=== PATIENT | female | born 1945 | race Caucasian/White ===

== ENCOUNTER 2024-05-24 11:35 | Inpatient (IN) | payer OTHER ==
[2024-05-24] VITALS (7 sets, daily range): BP systolic 140–165; PULSE 86–93; RESP 15–20; TEMP 97.9–98.5; O2SAT 95–98
[~2024-05-24] VITALS: Ht 149.9 cm; Wt 64.0 kg
[2024-05-24] MEDS ORDERED: iohexoL 350 mgI/mL, 100 ML INFUS..BTL IV ONE (11:56)
[2024-05-24 12:03] LABS: BASOPHILS # (AUTO) 0.1 K/uL (0.0-0.2); EOSINOPHILS # (AUTO) 1.5 K/uL (0.0-0.4); EOSINOPHILS % (AUTO) 12.8 % (0.0-4.0); HEMATOCRIT 32.5 % (36-48); HEMOGLOBIN 10.7 g/dL (12.0-16.0); LYMPHOCYTES # (AUTO) 1.9 K/uL (1.0-5.5); LYMPHOCYTES % (AUTO) 16.2 % (20.5-51.5); MEAN CORPUSCULAR HEMOGLOBIN 31 pg (27-31); MEAN CORPUSCULAR HGB CONC 33 % (32-36); MEAN CORPUSCULAR VOLUME 93 fL (79.0-98.0); MONOCYTES # (AUTO) 1.1 K/uL (0.0-1.0); MONOCYTES % (AUTO) 9.4 % (1.7-9.3); NEUTROPHILS # (AUTO) 6.9 K/uL (1.8-7.7); NEUTROPHILS % (AUTO) 60.6 % (40.0-70.0); RED CELL DISTRIBUTION WIDTH 16.6 % (9.0-15.0); WHITE BLOOD COUNT (AUTO) 11.4 K/uL (4.8-10.8)
[2024-05-24 12:18] LABS: PLATELET COUNT (AUTO) 813 K/uL (130-430)
[2024-05-24 12:23] LABS: INR 1.1 (0.8-1.2); PROTHROMBIN TIME 10.9 SECS (9.5-12.5)
[2024-05-24 12:27] LABS: ANION GAP 9 (5-15); CALCIUM 9.4 mg/dL (8.4-11.0); CARBON DIOXIDE 26 mmol/L (23-29); CHLORIDE 99 mmol/L (98-107); CREATININE 0.75 mg/dL (0.55-1.30); GLUCOSE 100 mg/dL (74-106); POTASSIUM 3.8 mmol/L (3.5-5.1); SODIUM SERUM 134 mmol/L (136-145); UREA NITROGEN, BLOOD 12 mg/dL (8-21)
[2024-05-24] MEDS ORDERED: ALBUTEROL SULFATE 0.083% 2.5 MG/3 ML VIAL.NEB INH PRN (14:45)
[2024-05-24] MEDS ORDERED: ONDANSETRON HCL 4 MG/2 ML VIAL IVP PRN (14:45)
[2024-05-24] MEDS ORDERED: TRAM50TA2 PO (15:04)
[2024-05-24] MEDS ORDERED: ASPI-1393 PO (15:04)
[2024-05-24] MEDS ORDERED: LIP40 PO (15:04)
[2024-05-24] MEDS ORDERED: DOCU-144 PO (15:04)
[2024-05-24] MEDS ORDERED: INSU300I12 SUBCUT (15:04)
[2024-05-24] MEDS ORDERED: VITD2000 PO (15:04)
[2024-05-24] MEDS ORDERED: METO25TA6 PO (15:04)
[2024-05-24] MEDS ORDERED: FER300L PO (15:04)
[2024-05-24] MEDS ORDERED: TICA90TA PO (15:04)
[2024-05-24] MEDS ORDERED: PANT20TA2 PO (15:04)
[2024-05-24] MEDS ORDERED: MEMA10TA22 PO (15:04)
[2024-05-24] MEDS ORDERED: MULT-1199 PO (15:19)
[2024-05-24] MEDS ORDERED: SODI1TAB3 PO (15:19)
[2024-05-24] MEDS ORDERED: HUM10VIA SUBCUT (15:19)
[2024-05-24] MEDS: IPRATROPIUM BROM 0.5 MG/2.5 ML VIAL.NEB (ATROVENT) INH SCH (15:53)
[2024-05-24] MEDS: D5NS 1,000 ML IV SCH (16:06)
[2024-05-24] MEDS: ATORVASTATIN 20 MG TABLET PO SCH (21:00)
[2024-05-24] MEDS ORDERED: DEXTROSE 50% JECT 50 ML DISP.SYRIN IVP PRN (22:45)
[2024-05-25] VITALS (7 sets, daily range): BP systolic 144–168; PULSE 76–84; RESP 16–18; TEMP 96.8–98.1; O2SAT 95–98
[2024-05-25] MEDS ORDERED: MORPHINE 2 MG/ML INJ. SYRINGE IVP PRN (00:15)
[2024-05-25] MEDS: ACETAMINOPHEN 325 MG TABLET PO PRN (00:18)
[2024-05-25 06:42] LABS: ANION GAP 7 (5-15); CALCIUM 9.4 mg/dL (8.4-11.0); CARBON DIOXIDE 29 mmol/L (23-29); CHLORIDE 98 mmol/L (98-107); CREATININE 0.67 mg/dL (0.55-1.30); GLUCOSE 93 mg/dL (74-106); POTASSIUM 3.7 mmol/L (3.5-5.1); SODIUM SERUM 134 mmol/L (136-145); UREA NITROGEN, BLOOD 10 mg/dL (8-21)
[2024-05-25 06:48] LABS: BASOPHILS # (AUTO) 0.1 K/uL (0.0-0.2); BASOPHILS % (AUTO) 0.8 % (0.0-2.0); EOSINOPHILS # (AUTO) 1.5 K/uL (0.0-0.4); HEMATOCRIT 29.7 % (36-48); HEMOGLOBIN 10.2 g/dL (12.0-16.0); LYMPHOCYTES # (AUTO) 2.6 K/uL (1.0-5.5); LYMPHOCYTES % (AUTO) 25.4 % (20.5-51.5); MEAN CORPUSCULAR HEMOGLOBIN 32 pg (27-31); MEAN CORPUSCULAR HGB CONC 34 % (32-36); MEAN CORPUSCULAR VOLUME 93 fL (79.0-98.0); MONOCYTES # (AUTO) 1.2 K/uL (0.0-1.0); MONOCYTES % (AUTO) 11.4 % (1.7-9.3); NEUTROPHILS # (AUTO) 4.8 K/uL (1.8-7.7); NEUTROPHILS % (AUTO) 47.4 % (40.0-70.0); PLATELET COUNT (AUTO) 712 K/uL (130-430); RED BLOOD CELL COUNT(AUTO) 3.21 MIL/uL (4.2-6.2); RED CELL DISTRIBUTION WIDTH 16.1 % (9.0-15.0); WHITE BLOOD COUNT (AUTO) 10.2 K/uL (4.8-10.8)
[2024-05-25] MEDS: TICAGRELOR 90 MG TABLET PO SCH (09:14)
[2024-05-25] MEDS: ASPIRIN 81 MG TAB.CHEW PO SCH (09:14)
[2024-05-25] MEDS: INSULIN REGULAR, HUMAN 100 UNITS/ML, 3 ML VIAL (humuLIN R) SUBCUT PRN (11:13)
[2024-05-25 12:27] LABS: BILIRUBIN,URINE NEGATIVE (NEGATIVE); BLOOD, URINE NEGATIVE (NEGATIVE); COLOR,URINE YELLOW (YELLOW); GLUCOSE,URINE NEGATIVE (NEGATIVE); KETONES,URINE NEGATIVE (NEGATIVE); LEUKOCYTE ESTERASE ,URINE NEGATIVE (NEGATIVE); NITRITE, URINE NEGATIVE (NEGATIVE); PROTEIN URINE TRACE (NEGATIVE); UROBILINOGEN,URINE 0.2 (0.2-1.0)
[2024-05-25 12:31] LABS: CLARITY/URINE SLIGHTLY CLOUDY (CLEAR)
[2024-05-25 12:38] LABS: BACTERIA,URINE RARE /HPF (None Seen); RBC,URINE 0-3 /HPF (0-3); WBC,URINE 0-3 /HPF (0-3)
[2024-05-25 15:54] LABS: CHOLESTEROL 95 mg/dL (<200)
[2024-05-25 15:56] LABS: HDL CHOLESTEROL 37 mg/dL (>55)
[2024-05-25 15:58] LABS: TRIGLYCERIDES 62 mg/dL (30-150)
== END 2024-05-25 14:25 | disposition home or self-care (01) | DRG 68 ==
LOC: SED 11:35 → STU 14:45
PROVIDERS: ADMIT Specialist; ATTEND Specialist
DX: I65.22 Occlusion and stenosis of left carotid artery (principal); I10 Essential (primary) hypertension; R56.9 Unspecified convulsions; E78.5 Hyperlipidemia, unspecified; I25.10 Atherosclerotic heart disease of native coronary artery without angina pectoris; F03.90 Unspecified dementia, unspecified severity, without behavioral disturbance, psychotic disturbance, mood disturbance, and anxiety; Z88.0 Allergy status to penicillin; Z88.8 Allergy status to other drugs, medicaments and biological substances; Z79.4 Long term (current) use of insulin; Z79.899 Other long term (current) drug therapy; Z79.82 Long term (current) use of aspirin; Z95.1 Presence of aortocoronary bypass graft; I25.2 Old myocardial infarction; K21.9 Gastro-esophageal reflux disease without esophagitis
CPT/HCPCS: 36415; 70450-TC; 70496; 70498; 71045; 80048; 80061; 81000; 81001; 81015; 82948; 83037; 84484; 85025; 85610; 85730; 87081; 93005; 93306; 94070; 94640; 94664; 94760; 97116-GP; 97530-GP; 99285; G0378; J1815; Q9967